=== PATIENT | male | born 1960 ===

== ENCOUNTER → 2021-05-21 | Outpatient (CLI) | payer BC ==
[~2021-05-21] MED LIST: ATOR20 PO; Adult Low Dose81 MG PO; CEPH500 PO; DIAZ5 PO; HYDACE5 PO; HYDMOR2 PO; LISI20 PO; NAPR220 PO; RXHYDMOR2 PO; RXLORA1 PO; VALS80
== END | disposition home or self-care (01) ==
LOC: LAB SHORT 14:30 → LAB 14:30
DX: E11.42 Type 2 diabetes mellitus with diabetic polyneuropathy (principal)
CPT/HCPCS: 82043

== ENCOUNTER → 2021-12-17 | Outpatient (CLI) | payer BC ==
[2021-12-17 14:53] LABS: BASOPHILS ABSOLUTE AUTO 0.06 K/mm3 (0.00-0.23); BASOPHILS PERCENT AUTO 1 % (0-2); EOSINOPHILS ABSOLUTE AUTO 0.32 K/mm3 (0.00-0.68); EOSINOPHILS PERCENT AUTO 3 % (0-6); Hematocrit 49.2 % (37.0-53.0); Hemoglobin 16.2 g/dL (13.5-17.5); IMMATURE GRAN ABSOLUTE AUTO 0.03 K/mm3 (0.00-0.10); IMMATURE GRAN PERCENT AUTO 0 % (0-1); LYMPHOCYTES ABSOLUTE AUTO 2.28 K/mm3 (0.84-5.20); LYMPHOCYTES PERCENT AUTO 24 % (21-46); MONOCYTES PERCENT AUTO 9 % (4-13); Mean Corpuscular HGB 28.2 pg (26.0-34.0); Mean Corpuscular HGB Conc 32.9 g/dL (31.5-36.5); Mean Corpuscular Volume 86 fL (80-100); Mean Platelet Volume 10.2 fL (9.1-12.4); NEUTROPHILS ABSOLUTE AUTO 6.06 K/mm3 (1.96-9.15); NEUTROPHILS PERCENT AUTO 63 % (41-73); Platelet Count 284 K/mm3 (150-400); RDW Coefficient Variation 12.9 % (11.7-14.2); RDW Standard Deviation 40.1 fL (35.1-46.3); Red Blood Cell Count 5.74 M/mm3 (4.30-5.90); White Blood Cell Count 9.65 K/mm3 (4.00-11.30)
== END | disposition home or self-care (01) ==
LOC: LAB SHORT 08:48
PROVIDERS: Hospitalist
DX: Z12.5 Encounter for screening for malignant neoplasm of prostate (principal); E29.1 Testicular hypofunction
CPT/HCPCS: 85025; G0103

== ENCOUNTER 2022-12-24 19:56 | Inpatient (IN) | payer BC ==
[~2022-12-24] VITALS: Ht 185.4 cm; Wt 111.0 kg
[2022-12-24] MEDS ORDERED: NEURONTIN300 MG PO (20:39)
[2022-12-24] MEDS ORDERED: DULOXETINE HCL60 M1 PO (20:39)
[2022-12-24] MEDS ORDERED: SEMGLEE (Y100 UNIT/2 SQ (20:39)
[2022-12-24] MEDS ORDERED: Methocarbamol750 MG PO (20:39)
[2022-12-24 20:59] LABS: BASOPHILS ABSOLUTE AUTO 0.17 K/mm3 (0.00-0.23); BASOPHILS PERCENT AUTO 1 % (0-2); EOSINOPHILS ABSOLUTE AUTO 0.01 K/mm3 (0.00-0.68); EOSINOPHILS PERCENT AUTO 0 % (0-6); Hematocrit 46.3 % (37.0-53.0); Hemoglobin 15.8 g/dL (13.5-17.5); IMMATURE GRAN ABSOLUTE AUTO 0.62 K/mm3 (0.00-0.10); IMMATURE GRAN PERCENT AUTO 3 % (0-1); LYMPHOCYTES ABSOLUTE AUTO 1.59 K/mm3 (0.84-5.20); LYMPHOCYTES PERCENT AUTO 6 % (21-46); MONOCYTES PERCENT AUTO 14 % (4-13); Mean Corpuscular HGB 27.8 pg (26.0-34.0); Mean Corpuscular HGB Conc 34.1 g/dL (31.5-36.5); Mean Corpuscular Volume 81 fL (80-100); Mean Platelet Volume 9.6 fL (9.1-12.4); NEUTROPHILS ABSOLUTE AUTO 19.33 K/mm3 (1.96-9.15); NEUTROPHILS PERCENT AUTO 77 % (41-73); Platelet Count 429 K/mm3 (150-400); RDW Coefficient Variation 13.1 % (11.7-14.2); RDW Standard Deviation 38.5 fL (35.1-46.3); Red Blood Cell Count 5.69 M/mm3 (4.30-5.90); White Blood Cell Count 25.12 K/mm3 (4.00-11.30)
[2022-12-24 21:22] LABS: Albumin, Blood 2.4 g/dL (3.4-5.0); Albumin/Globulin Ratio 0.4 (0.8-1.8); Bun/Creatinine Ratio 32.8 (12.0-20.0); Calcium, Blood 10.4 mg/dL (8.5-10.1); Creatinine, Blood 0.64 mg/dL (0.60-1.20); Globulin, Blood 5.5 g/dL (2.2-4.0); Potassium, Blood 4.1 mmol/L (3.5-5.5); Total Protein, Blood 7.9 g/dL (6.4-8.2)
[2022-12-25] VITALS (24 sets, daily range): BP systolic 120–169; BP diastolic 63–109
[2022-12-25 00:13] LABS: Base Excess Venous -13.7 mmol/L; Bicarbonate Venous 14.9 mmol/L (24.0-30.0); PCO2 Venous 28.4 mmHg (38-42)
[2022-12-25 00:16] LABS: pH Blood Venous 7.27 (7.34-7.37)
[2022-12-25 01:11] LABS: Source, Urine Clean Catch
[2022-12-25 01:13] LABS: Bilirubin, Urine Neg (Neg); Blood, Urine 4+ (Neg); Glucose Qualitative, Urine 4+ (Neg); Ketones, Urine 4+ (Neg); Leukocyte Esterase, Urine Neg (Neg); Nitrite, Urine Neg (Neg); Protein, Urine 2+ (Neg); Specific Gravity, Urine 1.015 (1.003-1.022); Urobilinogen, Urine NORM (Normal)
[2022-12-25 01:25] LABS: Appearance, Urine Clear (Clear); Color, Urine Yellow (P-Yellow)
[2022-12-25 01:27] LABS: Squamous Epithelial Cells Not Seen /hpf (Few); White Blood Cells, Urine 0-2 /hpf (0-5)
[2022-12-25 01:28] LABS: Bacteria Few /hpf; Granular Casts 0-2 /lpf (0)
[2022-12-25 03:37] LABS: Albumin, Blood 2.1 g/dL (3.4-5.0); Albumin/Globulin Ratio 0.4 (0.8-1.8); Bilirubin, Total 0.7 mg/dL (0.1-1.0); Bun/Creatinine Ratio 31.6 (12.0-20.0); Calcium, Blood 9.7 mg/dL (8.5-10.1); Creatinine, Blood 0.6 mg/dL (0.60-1.20); Globulin, Blood 5.2 g/dL (2.2-4.0); Potassium, Blood 3.5 mmol/L (3.5-5.5); Total Protein, Blood 7.3 g/dL (6.4-8.2)
--- NOTE | 2022-12-25 08:00 | NUR ---
ASSUMPTION OF CARE NOTE PATIENT ARRIVED TO UNIT ON INSULIN GTT. A&OX4 AND COOPERATIVE. TACHYPNIC AND HR IN 120S. COMPLAINS OF CHRONIC BACK PAIN FROM PREVIOUS SURGERIES. ABLE TO USE URINAL WITH SOME ASSISTANCE. PT STATES THEY WOULD LIKE TO REST THEY HAVE BEEN UP ALL NIGHT IN THE ED. HAS YET TO GET OUT OF BED, BUT IS INDEPENDENT WITH ADLS AT HOME.
[2022-12-25 09:36] LABS: BASOPHILS ABSOLUTE AUTO 0.02 K/mm3 (0.00-0.23); BASOPHILS PERCENT AUTO 0 % (0-2); EOSINOPHILS PERCENT AUTO 0 % (0-6); Hematocrit 26.2 % (37.0-53.0); Hemoglobin 8.7 g/dL (13.5-17.5); IMMATURE GRAN ABSOLUTE AUTO 0.12 K/mm3 (0.00-0.10); IMMATURE GRAN PERCENT AUTO 1 % (0-1); LYMPHOCYTES ABSOLUTE AUTO 0.77 K/mm3 (0.84-5.20); LYMPHOCYTES PERCENT AUTO 6 % (21-46); MONOCYTES ABSOLUTE AUTO 1.27 K/mm3 (0.16-1.47); MONOCYTES PERCENT AUTO 11 % (4-13); Mean Corpuscular HGB 28.2 pg (26.0-34.0); Mean Corpuscular HGB Conc 33.2 g/dL (31.5-36.5); Mean Corpuscular Volume 85 fL (80-100); Mean Platelet Volume 9.4 fL (9.1-12.4); NEUTROPHILS ABSOLUTE AUTO 9.91 K/mm3 (1.96-9.15); NEUTROPHILS PERCENT AUTO 82 % (41-73); Platelet Count 207 K/mm3 (150-400); RDW Coefficient Variation 13.2 % (11.7-14.2); RDW Standard Deviation 41.3 fL (35.1-46.3); Red Blood Cell Count 3.08 M/mm3 (4.30-5.90); White Blood Cell Count 12.09 K/mm3 (4.00-11.30)
[2022-12-25 10:09] LABS: Bun/Creatinine Ratio 37.6 (12.0-20.0); Creatinine, Blood 0.35 mg/dL (0.60-1.20); Potassium, Blood 2.1 mmol/L (3.5-5.5)
[2022-12-25 10:10] LABS: Calcium, Blood 6.1 mg/dL (8.5-10.1)
[2022-12-25 11:18] LABS: Magnesium, Blood 1.1 mg/dL (1.6-2.4); Phosphorus, Blood 1.1 mg/dL (2.5-4.9)
[2022-12-25 16:45] LABS: Blood Urea Nitrogen 15 mg/dL (8-24); Bun/Creatinine Ratio 31.3 (12.0-20.0); Bun/Creatinine Ratio 32.5 (12.0-20.0); CO2, Blood 16 mmol/L (21-32); Chloride, Blood 100 mmol/L (98-108); Creatinine, Blood 0.46 mg/dL (0.60-1.20); Creatinine, Blood 0.48 mg/dL (0.60-1.20); Glomerular Filtration Rate 117 (60-); Glucose, Blood 263 mg/dL (70-99); Phosphorus, Blood 2.2 mg/dL (2.5-4.9)
[2022-12-25 16:46] LABS: Calcium, Blood 9.5 mg/dL (8.5-10.1)
[2022-12-25 16:49] LABS: Anion Gap 12 mmol/L (6-16); Calcium, Blood 9.3 mg/dL (8.5-10.1); Potassium, Blood 4.3 mmol/L (3.5-5.5); Potassium, Blood 4.5 mmol/L (3.5-5.5)
[2022-12-25 16:50] LABS: Sodium, Blood 128 mmol/L (136-145)
--- NOTE | 2022-12-25 18:02 | NUR ---
SHIFT SUMMARY INSULIN GTT TURNED OFF AT 1250 PM. CBG'S REMAIN AROUND 250, MD AWARE. PT ORDERED TO BE ON LOW SLIDING SCALE ACHS. ROUTINE ORDER FOR LONG ACTING INSULIN TO BE ADRESSED IN AM PER MD. SEVERAL ELECTROLYTE REPLACEMENTS TODAY MAINLY FOR POTASSIUM, SODIUM, AND PHOSPATE. PT HAS BEEN TACHYPNIC, WITH SATS >92 ON RA. ALSO TACHYCARDIC. A&OX4 HAS BEEN ABLE TO SIT ON EDGE OF BED WITH ASSISTANCE BUT HAS NOT BEEN ABLE TO STAND.
[2022-12-25 21:09] LABS: Anion Gap 13 mmol/L (6-16); Blood Urea Nitrogen 15 mg/dL (8-24); CO2, Blood 15 mmol/L (21-32); Calcium, Blood 9.2 mg/dL (8.5-10.1); Chloride, Blood 97 mmol/L (98-108); Creatinine, Blood 0.43 mg/dL (0.60-1.20); Glomerular Filtration Rate 121 (60-); Glucose, Blood 313 mg/dL (70-99); Magnesium, Blood 1.8 mg/dL (1.6-2.4); Potassium, Blood 4.4 mmol/L (3.5-5.5); Sodium, Blood 125 mmol/L (136-145)
[2022-12-26] VITALS (9 sets, daily range): BP systolic 103–173; BP diastolic 59–146
--- NOTE | 2022-12-26 01:04 | NUR ---
PT IS ALERT AND ORIENTED X3 BUT CONTINUES TO PULL OFF HIS OXYGEN SENSOR, HAND HEEL SEAT FITTER AND HAS PULLED OUT AN IV. PT HAS BEEN EDUCATED AND REDIRECTED REPEATEDLY ABOUT THE NECESSITY OF THESE ITEMS. HE IS RESTLESS AND STATES HE CAN'T EXPLAIN WHY HE IS NON-COMPLIANT.
[2022-12-26 02:37] LABS: Hematocrit 44.6 % (37.0-53.0); Hemoglobin 15.3 g/dL (13.5-17.5); Mean Corpuscular HGB 28.4 pg (26.0-34.0); Mean Corpuscular HGB Conc 34.3 g/dL (31.5-36.5); Mean Corpuscular Volume 83 fL (80-100); Mean Platelet Volume 9.2 fL (9.1-12.4); Platelet Count 366 K/mm3 (150-400); RDW Coefficient Variation 13.4 % (11.7-14.2); RDW Standard Deviation 40.5 fL (35.1-46.3); Red Blood Cell Count 5.38 M/mm3 (4.30-5.90); White Blood Cell Count 25.16 K/mm3 (4.00-11.30)
[2022-12-26 02:56] LABS: Anion Gap 14 mmol/L (6-16); Blood Urea Nitrogen 14 mg/dL (8-24); Bun/Creatinine Ratio 35.6 (12.0-20.0); CO2, Blood 19 mmol/L (21-32); Calcium, Blood 9.6 mg/dL (8.5-10.1); Chloride, Blood 96 mmol/L (98-108); Creatinine, Blood 0.39 mg/dL (0.60-1.20); Glomerular Filtration Rate 125 (60-); Glucose, Blood 262 mg/dL (70-99); Magnesium, Blood 1.8 mg/dL (1.6-2.4); Phosphorus, Blood 2.5 mg/dL (2.5-4.9); Potassium, Blood 3.7 mmol/L (3.5-5.5); Sodium, Blood 129 mmol/L (136-145)
--- NOTE | 2022-12-26 06:13 | NUR ---
SHIFT SUMMERY PT HAS BEEN ALERT AND ORIENTED X4 BUT W/IMPULSIVE AND ERRATIC BEHAVIOR OVERNIGHT. HE HAS BEEN COMPULSIVELY TOUCHING HIS GENITALS. HE ALSO DISCONNECTED HIS IV AND PULLED HIS MONITOR DEVICES OFF MULTIPLE TIMES. HIS VS HAVE BEEN STABLE AND LABS ARE IMPROVING. HE VOIDS IN THE URINAL BUT HAS HAD 2 SMALL INCONTINENT STOOLS. HE HAS BEEN AFEBRILE.
[2022-12-26 08:47] LABS: Bun/Creatinine Ratio 29.7 (12.0-20.0); Calcium, Blood 9.8 mg/dL (8.5-10.1); Creatinine, Blood 0.47 mg/dL (0.60-1.20); Potassium, Blood 3.8 mmol/L (3.5-5.5)
--- NOTE | 2022-12-26 08:56 | NUR ---
ASSUMPTION OF CARE NOTE PT CURRENTLY AWAKE. APEARS UNSETTLED, FIDGETING. DOES NOT REPORT ANXIOUSNESS. REPORTS PAIN IS BETTER CONTROLLED WITH GABAPENTIN TID. LABS CONTINUE TO IMPROVE, BLOOD SUGARS REMAINING IN UPPER 200S. PT IS LOOKING FORWARD TO VISITING WITH FAMILY TODAY.
--- NOTE | 2022-12-26 11:14 | NUR ---
UPDATE REPORTS EUNICE'S BEHAVIOR IS VERY UNUSUAL COMPARED TO BASELINE. HE IS TYPICALLY NOT INAPPROPRIATE WITH TOUCHING HIMSELF OR STRIPPING OFF CLOTHING. HIS FIDGETING AND INCONTINENCE IS ALSO NEW. MOST OF THESE BEHAVIORS BEGAN HAPPENING ON SUNDAY 12/24 WHEN HE CAME INTO THE HOSPITAL. SHE CLAIMS THE PT HAD BEEN HAVING SOME INCONTINENCE DURING THE WEEK LEADING UP TO ADMISSION ALOND WITH MORE "NEEDINESS" THAN USUAL. SHE SAID PT WAS REPORTING THAT HE WAS TAKING HIS INSULIN BUT HE WAS NOT TAKING IT AT ALL OVER THE PAST SEVERAL DAYS. SHE ALSO MENTIONED OBSERVING SIGNIFICANT MUSCLE ATROPHY IN PT'S LEG. SHE IS VERY CONCERNED ABOUT HIS UNUSUAL BEHAVIOR. PT REMAINS ALERT AND ORTIENTED X4
--- NOTE | 2022-12-26 18:10 | NUR ---
SHIFT SUMMARY PT REMAINS A&OX4, WITH SOME FORGETFUL/INAPROPRIATE BEHAIVOR INTERMITTENTLY. WAS ABLE TO SIT AT EDGE OF BED FOR LUNCH TODAY BUT HAS STILL BEEN UNABLE TO STAND. RN FEELS PT WOULD BENEFIT FROM PHYSICAL THERAPY. HR AND RESP RATE REMAIN TACHY, BUT LABS ARE CONTINUING TO IMPROVE. SUGARS ARE ELEVATED IN HIGH 200S TO MID 300S. PER MD NOTE, TO INCREASE SLIDING SCALE INSULIN. DOWNGRADED TO MED STATUS NO TELE. TRANSPORTING PT TO MEDICAL FLOOR NOW
[2022-12-27] VITALS (14 sets, daily range): BP systolic 118–177; BP diastolic 72–105
--- NOTE | 2022-12-27 05:38 | NUR ---
PATIENT VITALS: R:36-40, T: 98.5, HR 130-136, BP 177/105, O2 95% ON ROOM AIR CBG 320 AND LUNGS: CRACKLES, NS KCL 2 100 mL/HR HOSPITALIST DR GILMAN ORDER: LASIX IV 40 MG X ONE; DC FLUIDS, AND PORTABLE CXR X ONE VIEW.
[2022-12-27 06:01] LABS: Hematocrit 44.3 % (37.0-53.0); Hemoglobin 15.3 g/dL (13.5-17.5); Mean Corpuscular HGB 28.1 pg (26.0-34.0); Mean Corpuscular HGB Conc 34.5 g/dL (31.5-36.5); Mean Corpuscular Volume 81 fL (80-100); Mean Platelet Volume 9.9 fL (9.1-12.4); Platelet Count 448 K/mm3 (150-400); RDW Coefficient Variation 13.6 % (11.7-14.2); RDW Standard Deviation 40.1 fL (35.1-46.3); Red Blood Cell Count 5.45 M/mm3 (4.30-5.90)
--- NOTE | 2022-12-27 06:17 | NUR ---
PATIENT BLADDER SCAN 1,[address] DESAI ORDERED TRIPELTT CATHETER URINE 1,500 mL OUT URINE SAMPLE SENT TO LAB
[2022-12-27 06:19] LABS: Albumin, Blood 1.7 g/dL (3.4-5.0); Anion Gap 16 mmol/L (6-16); Blood Urea Nitrogen 27 mg/dL (8-24); Bun/Creatinine Ratio 38.6 (12.0-20.0); CO2, Blood 13 mmol/L (21-32); Calcium, Blood 10.4 mg/dL (8.5-10.1); Chloride, Blood 99 mmol/L (98-108); Glomerular Filtration Rate 105 (60-); Glucose, Blood 359 mg/dL (70-99); Phosphorus, Blood 3.2 mg/dL (2.5-4.9); Sodium, Blood 128 mmol/L (136-145)
--- NOTE | 2022-12-27 06:28 | NUR ---
SHIFT SUMMARY PATIENT HAD INCREASE HR AND RESPIRATIONS, WITH URINE RETENTION (SEE NOTE FOR HOSPITALIST ORDERS). TRIPLETT PLACED PER ORDER. AXOX 2, CONFUSION, AND BEDREST. PLACED ON 2L O2 NC. PIV REMAINS INTACT. CBG 356 AND 320. NS DC'D PER ORDER. DENIES CHEST PAIN, SOB, AND N/V. SPOUSE REPORTED PATIENT CONFUSED BEFORE SHE LEFT AT SHIFT CHANGE. CALL LIGHT IN REACH. BED IN LOWEST POSITION. WILL CONTINUE TO MONITOR UNTIL DAY SHIFT NURSE ASSUMES CARE.
[2022-12-27 06:33] LABS: BAND PERCENT MAN 5 % (0-8); BASOPHILS PERCENT MAN 0 % (0-2); EOSINOPHILS PERCENT MAN 0 % (0-6); LYMPHOCYTES ABSOLUTE MAN 1.31 K/mm3 (0.84-5.20); LYMPHOCYTES PERCENT MAN 4 % (21-46); MONOCYTES ABSOLUTE MAN 2.62 K/mm3 (0.16-1.47); MONOCYTES PERCENT MAN 8 % (4-13); NEUTROPHILS ABSOLUTE MAN 28.86 K/mm3 (1.96-9.15); SEG NEUTROPHILS PERCENT MAN 83 % (41-73); TOTAL CELLS COUNTED 100
[2022-12-27 06:40] LABS: Source, Urine Foley catheter
[2022-12-27 06:58] LABS: Appearance, Urine Cloudy (Clear); Bilirubin, Urine Neg (Neg); Blood, Urine 5+ (Neg); Color, Urine Red (P-Yellow); Glucose Qualitative, Urine 4+ (Neg); Ketones, Urine 3+ (Neg); Leukocyte Esterase, Urine 1+ (Neg); Nitrite, Urine Neg (Neg); Protein, Urine 3+ (Neg); Specific Gravity, Urine 1.015 (1.003-1.022); Urobilinogen, Urine 1+ (Normal)
[2022-12-27 07:01] LABS: Bacteria Many /hpf; Red Blood Cells, Urine TNTC /hpf (0-2)
[2022-12-27 07:02] LABS: Squamous Epithelial Cells Not Seen /hpf (Few)
--- NOTE | 2022-12-27 09:59 | NUR ---
PT ARRIVED TO ROOM [id number] APROX 0930. SEE ASSESSMENT AND VS. FSBS CHECKED AT 0955, RESULT 375, DR DAMICO NOTIFIED, STATES HE WILL COME ASSESS PT. PT'S AT BEDSIDE. WILL CONTINUE TO MONITOR PT STATUS.
[2022-12-27 11:01] LABS: Bun/Creatinine Ratio 43.9 (12.0-20.0); Calcium, Blood 10.5 mg/dL (8.5-10.1); Creatinine, Blood 0.68 mg/dL (0.60-1.20); Potassium, Blood 3.5 mmol/L (3.5-5.5)
--- NOTE | 2022-12-27 11:36 | NUR ---
AT START OF SHIFT PT WAS TACHYPEIC AND TACHYCARDIC. TEMP WAS SLIGHTLY ELEVATED. PT WAS SLEEPING AND LETHARGIC WHEN AROUSED. IN ROOM AND VERBALIZED THAT PT WAS "DOING GOOD" WHEN SHE LEFT HIM LAST NIGHT. PINK COLORED URINE NOTED IN TRIPLETT CATHETER. BG WAS 369. DR DAMICO NOTIFIED AND ORDERS GIVEN. PT TRANSFERED TO PCU AND REPORT GIVEN TO RECIEVING NURSE.
--- NOTE | 2022-12-27 15:51 | NUR ---
PT CONTINUES TO BE LETHARGIC, OPENS EYES TO NAME BUT QUICKLY CLOSES THEM AND APPEARS TO FALL BACK TO SLEEP. HR NOTED TO HAVE REMAINED 120-130s SINUS TACH SINCE ARRIVAL TO PCU THIS AM. DR DAMICO NOTIFIED AND NEW ORDERS RECEIVED. FSBS HAVE SLOWLY BEEN DECREASING AND 2.1L URINE OUTPUT SINCE ARRIVAL TO PCU. REOCCURENCE OF DKA REMAINS A CONCERN, MONITORING FSBS Q 2 HRS W SLIDING SCALE COVERAGE AC/HS. WILL CONTINUE TO MONITOR AND UPDATE DR DAMICO OF PT STATUS/CONCERNS. PT'S AT BEDSIDE.
--- NOTE | 2022-12-27 17:40 | NUR ---
SHIFT SUMMARY DR DAMICO UPDATED ON PT CONDITION AT 1648, PT'S REPORTS PT IS HAVING LEG CRAMPS AND PAIN. EVENING FSBS 300. NEW ORDERS RECIEVED. PT HAS REMAINED LETHARGIC T/O THE SHIFT SINCE ARRIVAL TO PCU. WAKES ONLY BRIEFLY AND QUICKLY APPEARS TO FALL BACK TO SLEEP. PT NOT ALERT ENOUGH FOR PO INTAKE TODAY. TURN Q 2. 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 DR DAMICO NOTIFIED OF BACK PAIN. FSBS CHANGED TO Q 4 HRS FOR CLOSER MONITORING. CONTINUOUS TELEMETRY, PULSE OX AND BPs Q 1HR. PT UNABLE TO USE CALL LIGHT FOR NEEDS, FREQUENT ROUNDING, BED ALARM ON FOR SAFETY. WILL CONTINUE TO MONITOR AND GIVE REPORT TO NOC SHIFT RN.
[2022-12-27 18:57] LABS: Bun/Creatinine Ratio 39.2 (12.0-20.0); Calcium, Blood 10.4 mg/dL (8.5-10.1); Creatinine, Blood 0.64 mg/dL (0.60-1.20); Potassium, Blood 3.3 mmol/L (3.5-5.5)
[2022-12-28 04:09] LABS: Bun/Creatinine Ratio 41.4 (12.0-20.0); Creatinine, Blood 0.6 mg/dL (0.60-1.20); Potassium, Blood 3.3 mmol/L (3.5-5.5)
[2022-12-28 04:33] VITALS: BP 145/77
--- NOTE | 2022-12-28 06:45 | NUR ---
SHIFT SUMMARY PATIENT ALERT AND ORIENTED TO SELF AND FAMILY. LETHARGIC, RESPONDS TO VERBAL STIMULI AND OCCASIONALLY SAYS A FEW THINGS, FALLS ASLEEP QUICKLY AND UNABLE TO ANSWER QUESTIONS OR FOLLOW DIRECTIONS. POTASSIUM WAS 3.3 LAST NIGHT, REPLACED WITH 40 MEQ IV POTASSIUM PER DR BACK. PATIENT CONTINUES TO BE TACHYPNIC BUT IS NOW ON ROOM AIR. BLOOD PRESSURE STABLE, HEART RATE STILL SINUS TACH. Q4 HOUR BLOOD SUGAR CHECKS, 0400 BLOOD SUGAR 253, TREATED PER EMAR. WILL CONTINUE TO MONITOR. CALL LIGHT WITHIN REACH.
[2022-12-28 07:00] VITALS: BP 144/87
[2022-12-28 11:15] LABS: Base Excess Venous 1.3 mmol/L; Bicarbonate Venous 26.5 mmol/L (24.0-30.0); pH Blood Venous 7.53 (7.34-7.37)
[2022-12-28 11:29] VITALS: BP 154/90
[2022-12-28 15:33] VITALS: BP 131/83
--- NOTE | 2022-12-28 18:06 | NUR ---
SHIFT SUMMARY; ASSUMED CARE AT 0700. LETHARGIC BUT RESPONSIVE TO VOICE. MOVES ALL FOUR EXTREMTIES BUT DOES NOT FOLLOW INSTRUCTIONS. RR 40-50, DISCUSSED WITH DR. GUIDO. VBG AND CT COMPLETED. REPOSITIONS SELF ON BED AT TIMES, BUT ASSISTED WITH Q2 REPOSITIONS. PT ATTEMPTED TO WORK WITH PT. SCREAMS AND DOES NOT FOLLOW INSTRUCTIONS. AT BEDSIDE MOST OF SHIFT. 2L 02 VIA NC NEEDED. NPO DUE TO LETHRAGY, IV FLUIDS DC'D BY DR. GUIDO AFTER CT RESULTS. TRIPLETT IN PLACE DRAINING TO GRAVITY. WILL CONTINUE TO MONITOR AND TREAT UNTIL CHANGE OF SHIFT.
[2022-12-28 19:44] VITALS: BP 139/85
[2022-12-29] VITALS (7 sets, daily range): BP systolic 131–162; BP diastolic 85–108
[2022-12-29 03:58] LABS: Hematocrit 46.4 % (37.0-53.0); Hemoglobin 15.4 g/dL (13.5-17.5); Mean Corpuscular HGB 27.7 pg (26.0-34.0); Mean Corpuscular HGB Conc 33.2 g/dL (31.5-36.5); Mean Corpuscular Volume 84 fL (80-100); Mean Platelet Volume 9.9 fL (9.1-12.4); Platelet Count 422 K/mm3 (150-400); RDW Coefficient Variation 14.3 % (11.7-14.2); RDW Standard Deviation 43.8 fL (35.1-46.3); Red Blood Cell Count 5.55 M/mm3 (4.30-5.90); White Blood Cell Count 21.69 K/mm3 (4.00-11.30)
[2022-12-29 04:26] LABS: Bun/Creatinine Ratio 49.2 (12.0-20.0); Calcium, Blood 9.8 mg/dL (8.5-10.1); Creatinine, Blood 0.61 mg/dL (0.60-1.20); Potassium, Blood 3.4 mmol/L (3.5-5.5)
[2022-12-29 13:56] LABS: Vancomycin, Trough 19.9 ug/mL (5.0-10.0)
--- NOTE | 2022-12-29 18:06 | NUR ---
SHIFT SUMMARY; ASSUMED CARE AT 0700. APPEARS MORE ALERT COMPARED TO PREVIOUS SHIFT. A/A/OX2. ABLE TO ANSWER QUESTIONS AT TIMES. EVALUATED BY SPEECH, DIET ORDERED. MOVES ARMS AND LEGS ON GURNEY, DIFFICULTY FOLLOWING INSTRUCTIONS. 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 TWITCHES FEET AND FREQUENTLY BENDS RIGHT LEG. CONTINUES TO YELL AND SCREEM WHEN MOVED OR REPOSITIONED. MRI COMPLETED TODAY, UPDATED BY DR. GUIDO ON MRI RESULTS AND PENDING TRANSFER. VSS, MEDICATED FOR PAIN PER EMAR, TOLERATING WELL. 2L O2 VIA NC PRN WHEN ASLEEP. TRIPLETT IN PLACE DRAINING YELLOW CLEAR URINE. BECOMES MORE LETHARGIC IN AFTERNOON AND ANSWERING LESS QUESTIONS, APPEARS CONFUSED. WILL CONTINUE TO MONITOR AND TREAT UNTIL CHANGE OF SHIFT. AWAITING COBRA TRANSFER.
[2022-12-29 18:31] LABS: International Normalized Ratio 1.25
== END 2022-12-29 19:28 | disposition short-term general hospital (02) | DRG 637 ==
LOC: ER 19:56 → ERHOLD 19:57 → ICUE 12-25 08:11 → PCU 12-25 15:16 → ICUE 12-25 15:16 → PCU 12-25 15:16 → ICUE 12-25 19:32 → MEDS 12-26 18:25 → PCU 12-27 09:34
PROVIDERS: Emergency Medicine; Internal Medicine; Student in an Organized Health Care Education/Training Program; ADMIT Internal Medicine
PROC: 3E03329 Introduction of Other Anti-infective into Peripheral Vein, Percutaneous Approach (ICD-10-PCS; principal; 2022-12-27)
PROC: 0T9B70Z Drainage of Bladder with Drainage Device, Via Natural or Artificial Opening (ICD-10-PCS; 2022-12-27)
DX: E11.10 Type 2 diabetes mellitus with ketoacidosis without coma (principal); A41.01 Sepsis due to Methicillin susceptible Staphylococcus aureus; G92.8 Other toxic encephalopathy; J96.01 Acute respiratory failure with hypoxia; K68.12 Psoas muscle abscess; G06.1 Intraspinal abscess and granuloma; R65.20 Severe sepsis without septic shock; E87.1 Hypo-osmolality and hyponatremia; N39.0 Urinary tract infection, site not specified; E87.0 Hyperosmolality and hypernatremia; I10 Essential (primary) hypertension; G25.81 Restless legs syndrome; E83.52 Hypercalcemia; E86.0 Dehydration; E87.6 Hypokalemia; E83.42 Hypomagnesemia; E83.39 Other disorders of phosphorus metabolism; R33.9 Retention of urine, unspecified; E11.40 Type 2 diabetes mellitus with diabetic neuropathy, unspecified; R29.6 Repeated falls; Z91.148 Patient's other noncompliance with medication regimen for other reason; Z91.048 Other nonmedicinal substance allergy status; Z79.4 Long term (current) use of insulin; Z79.82 Long term (current) use of aspirin; Z79.899 Other long term (current) drug therapy; W18.39XA Other fall on same level, initial encounter; Y92.009 Unspecified place in unspecified non-institutional (private) residence as the place of occurrence of the external cause
CPT/HCPCS: 36415; 70450; 71045; 71260; 72100; 72158; 80048; 80053; 80069; 80202; 81001; 82140; 82330; 82803; 82947; 83036; 83605; 83735; 83880; 84100; 84443; 84484; 85025; 85027; 85610; 87040; 87077; 87086; 87147; 87186; 92610; 93005; 93010; 96372; 97110; 97162; 99285-25; A9270; A9579; C1751; G0378; J0696; J1650; J1815; J1940; J2060; J3010; J3370; J3475; J3480; J7030; J7040; J7050; J7060; Q9967

== ENCOUNTER → 2023-06-16 | Outpatient (CLI) | payer BC ==
[~2023-06-16] MED LIST changes: +ACET500 PO; +BACL10 PO; +DULOXETINE HCL60 M1 PO; +IBUP600 PO; +INSULANPEN SC; +LOSA25 PO; +Methocarbamol750 MG PO; +NEURONTIN300 MG PO; +OXYC10ER PO; +SEMGLEE (Y100 UNIT/2 SQ; +TAMS.4ER PO
[2023-06-16 13:54] LABS: BASOPHILS ABSOLUTE AUTO 0.04 K/mm3 (0.00-0.23); BASOPHILS PERCENT AUTO 1 % (0-2); EOSINOPHILS ABSOLUTE AUTO 0.37 K/mm3 (0.00-0.68); EOSINOPHILS PERCENT AUTO 5 % (0-6); Hematocrit 34.2 % (37.0-53.0); IMMATURE GRAN ABSOLUTE AUTO 0.02 K/mm3 (0.00-0.10); IMMATURE GRAN PERCENT AUTO 0 % (0-1); LYMPHOCYTES ABSOLUTE AUTO 2.56 K/mm3 (0.84-5.20); LYMPHOCYTES PERCENT AUTO 35 % (21-46); MONOCYTES ABSOLUTE AUTO 0.57 K/mm3 (0.16-1.47); MONOCYTES PERCENT AUTO 8 % (4-13); Mean Corpuscular HGB Conc 32.2 g/dL (31.5-36.5); Mean Corpuscular Volume 84 fL (80-100); NEUTROPHILS ABSOLUTE AUTO 3.79 K/mm3 (1.96-9.15); NEUTROPHILS PERCENT AUTO 52 % (41-73); Platelet Count 484 K/mm3 (150-400); RDW Coefficient Variation 14.5 % (11.7-14.2); RDW Standard Deviation 43.6 fL (35.1-46.3); Red Blood Cell Count 4.08 M/mm3 (4.30-5.90); White Blood Cell Count 7.35 K/mm3 (4.00-11.30)
[2023-06-16 14:20] LABS: C-REACTIVE PROTEIN, EXT RANGE 0.968 mg/dL (0.000-0.300)
[2023-06-16 14:22] LABS: Albumin, Blood 2.9 g/dL (3.4-5.0); Albumin/Globulin Ratio 0.5 (0.8-1.8); Bilirubin, Total 0.2 mg/dL (0.1-1.0); Bun/Creatinine Ratio 19.6 (12.0-20.0); Calcium, Blood 9.3 mg/dL (8.5-10.1); Creatinine, Blood 0.51 mg/dL (0.60-1.20); Globulin, Blood 6.4 g/dL (2.2-4.0); Potassium, Blood 3.6 mmol/L (3.5-5.5); Total Protein, Blood 9.3 g/dL (6.4-8.2)
== END ==
LOC: LAB SHORT 11:25 → LAB 11:25
DX: M46.26 Osteomyelitis of vertebra, lumbar region (principal); R78.81 Bacteremia; B95.61 Methicillin susceptible Staphylococcus aureus infection as the cause of diseases classified elsewhere
CPT/HCPCS: 80053; 85025; 85651; 86140

== ENCOUNTER → 2023-06-23 | Outpatient (CLI) | payer BC ==
[2023-06-23 13:12] LABS: BASOPHILS ABSOLUTE AUTO 0.06 K/mm3 (0.00-0.23); BASOPHILS PERCENT AUTO 1 % (0-2); EOSINOPHILS ABSOLUTE AUTO 0.28 K/mm3 (0.00-0.68); EOSINOPHILS PERCENT AUTO 4 % (0-6); IMMATURE GRAN ABSOLUTE AUTO 0.02 K/mm3 (0.00-0.10); IMMATURE GRAN PERCENT AUTO 0 % (0-1); LYMPHOCYTES PERCENT AUTO 30 % (21-46); MONOCYTES ABSOLUTE AUTO 0.65 K/mm3 (0.16-1.47); MONOCYTES PERCENT AUTO 9 % (4-13); Mean Corpuscular HGB 27.4 pg (26.0-34.0); Mean Corpuscular HGB Conc 32.5 g/dL (31.5-36.5); Mean Corpuscular Volume 84 fL (80-100); Mean Platelet Volume 9.1 fL (9.1-12.4); NEUTROPHILS ABSOLUTE AUTO 4.31 K/mm3 (1.96-9.15); NEUTROPHILS PERCENT AUTO 57 % (41-73); Platelet Count 454 K/mm3 (150-400); RDW Coefficient Variation 14.8 % (11.7-14.2); RDW Standard Deviation 45.1 fL (35.1-46.3); Red Blood Cell Count 4.75 M/mm3 (4.30-5.90); White Blood Cell Count 7.62 K/mm3 (4.00-11.30)
[2023-06-23 13:57] LABS: C-REACTIVE PROTEIN, EXT RANGE <0.290 mg/dL (0.000-0.300)
[2023-06-23 14:00] LABS: Alanine Aminotransfer (ALT/SGP 14 U/L (12-78); Albumin, Blood 3.3 g/dL (3.4-5.0); Albumin/Globulin Ratio 0.7 (0.8-1.8); Alk Phos 240 U/L (50-136); Anion Gap 4 mmol/L (6-16); Aspartate Aminotrans (AST/SGOT 11 U/L (12-37); Bilirubin, Total 0.2 mg/dL (0.1-1.0); Blood Urea Nitrogen 19 mg/dL (8-24); Bun/Creatinine Ratio 34.7 (12.0-20.0); CO2, Blood 25 mmol/L (21-32); Calcium, Blood 9.5 mg/dL (8.5-10.1); Chloride, Blood 108 mmol/L (98-108); Creatinine, Blood 0.55 mg/dL (0.60-1.20); Glomerular Filtration Rate 112 (60-); Glucose, Blood 179 mg/dL (70-99); Potassium, Blood 3.8 mmol/L (3.5-5.5); Sodium, Blood 137 mmol/L (136-145); Total Protein, Blood 8.3 g/dL (6.4-8.2)
== END | disposition home or self-care (01) ==
LOC: LAB 11:16 → LAB SHORT 11:16
DX: M46.26 Osteomyelitis of vertebra, lumbar region (principal); G89.4 Chronic pain syndrome; R26.89 Other abnormalities of gait and mobility
CPT/HCPCS: 80053; 85025; 85651; 86140

== ENCOUNTER → 2023-06-30 | Outpatient (CLI) | payer BC ==
[2023-06-30 17:53] LABS: BASOPHILS ABSOLUTE AUTO 0.05 K/mm3 (0.00-0.23); BASOPHILS PERCENT AUTO 1 % (0-2); EOSINOPHILS ABSOLUTE AUTO 0.15 K/mm3 (0.00-0.68); EOSINOPHILS PERCENT AUTO 3 % (0-6); Hematocrit 40.6 % (37.0-53.0); Hemoglobin 13.2 g/dL (13.5-17.5); IMMATURE GRAN ABSOLUTE AUTO 0.01 K/mm3 (0.00-0.10); IMMATURE GRAN PERCENT AUTO 0 % (0-1); LYMPHOCYTES PERCENT AUTO 34 % (21-46); MONOCYTES ABSOLUTE AUTO 0.52 K/mm3 (0.16-1.47); MONOCYTES PERCENT AUTO 9 % (4-13); Mean Corpuscular HGB 27.2 pg (26.0-34.0); Mean Corpuscular HGB Conc 32.5 g/dL (31.5-36.5); Mean Corpuscular Volume 84 fL (80-100); Mean Platelet Volume 9.3 fL (9.1-12.4); NEUTROPHILS ABSOLUTE AUTO 3.23 K/mm3 (1.96-9.15); NEUTROPHILS PERCENT AUTO 54 % (41-73); Platelet Count 334 K/mm3 (150-400); RDW Coefficient Variation 14.9 % (11.7-14.2); RDW Standard Deviation 45.4 fL (35.1-46.3); Red Blood Cell Count 4.85 M/mm3 (4.30-5.90); White Blood Cell Count 5.96 K/mm3 (4.00-11.30)
[2023-06-30 21:03] LABS: Alanine Aminotransfer (ALT/SGP 15 U/L (12-78); Albumin, Blood 3.5 g/dL (3.4-5.0); Albumin/Globulin Ratio 0.9 (0.8-1.8); Alk Phos 238 U/L (50-136); Anion Gap 5 mmol/L (6-16); Aspartate Aminotrans (AST/SGOT 13 U/L (12-37); Bilirubin, Total 0.2 mg/dL (0.1-1.0); Blood Urea Nitrogen 21 mg/dL (8-24); Bun/Creatinine Ratio 34.9 (12.0-20.0); C-REACTIVE PROTEIN, EXT RANGE <0.290 mg/dL (0.000-0.300); CO2, Blood 26 mmol/L (21-32); Calcium, Blood 9.1 mg/dL (8.5-10.1); Chloride, Blood 110 mmol/L (98-108); Globulin, Blood 4.1 g/dL (2.2-4.0); Glomerular Filtration Rate 109 (60-); Glucose, Blood 253 mg/dL (70-99); Potassium, Blood 3.7 mmol/L (3.5-5.5); Sodium, Blood 141 mmol/L (136-145); Total Protein, Blood 7.6 g/dL (6.4-8.2)
== END ==
LOC: LAB SHORT 16:31 → EDSTATUS 06-29 14:55 → LAB FUT 06-29 14:55
DX: M46.26 Osteomyelitis of vertebra, lumbar region (principal); B95.61 Methicillin susceptible Staphylococcus aureus infection as the cause of diseases classified elsewhere; R78.81 Bacteremia; E11.69 Type 2 diabetes mellitus with other specified complication; Z79.2 Long term (current) use of antibiotics
CPT/HCPCS: 80053; 85025; 85651; 86140

== ENCOUNTER → 2023-07-07 | Outpatient (CLI) | payer BC ==
[2023-07-07 14:35] LABS: BASOPHILS ABSOLUTE AUTO 0.03 K/mm3 (0.00-0.23); BASOPHILS PERCENT AUTO 1 % (0-2); EOSINOPHILS PERCENT AUTO 3 % (0-6); Hematocrit 43.1 % (37.0-53.0); Hemoglobin 13.9 g/dL (13.5-17.5); IMMATURE GRAN ABSOLUTE AUTO 0.01 K/mm3 (0.00-0.10); IMMATURE GRAN PERCENT AUTO 0 % (0-1); LYMPHOCYTES ABSOLUTE AUTO 2.28 K/mm3 (0.84-5.20); LYMPHOCYTES PERCENT AUTO 36 % (21-46); MONOCYTES ABSOLUTE AUTO 0.57 K/mm3 (0.16-1.47); MONOCYTES PERCENT AUTO 9 % (4-13); Mean Corpuscular HGB 27.4 pg (26.0-34.0); Mean Corpuscular HGB Conc 32.3 g/dL (31.5-36.5); Mean Corpuscular Volume 85 fL (80-100); Mean Platelet Volume 9.7 fL (9.1-12.4); NEUTROPHILS ABSOLUTE AUTO 3.24 K/mm3 (1.96-9.15); NEUTROPHILS PERCENT AUTO 51 % (41-73); Platelet Count 311 K/mm3 (150-400); RDW Coefficient Variation 15.1 % (11.7-14.2); RDW Standard Deviation 46.6 fL (35.1-46.3); Red Blood Cell Count 5.07 M/mm3 (4.30-5.90); White Blood Cell Count 6.33 K/mm3 (4.00-11.30)
[2023-07-07 14:36] LABS: C-REACTIVE PROTEIN, EXT RANGE <0.290 mg/dL (0.000-0.300)
[2023-07-07 14:56] LABS: Alanine Aminotransfer (ALT/SGP 32 U/L (12-78); Albumin, Blood 3.4 g/dL (3.4-5.0); Albumin/Globulin Ratio 0.8 (0.8-1.8); Alk Phos 244 U/L (50-136); Anion Gap 6 mmol/L (6-16); Aspartate Aminotrans (AST/SGOT 4 U/L (12-37); Bilirubin, Total 0.2 mg/dL (0.1-1.0); Blood Urea Nitrogen 21 mg/dL (8-24); CO2, Blood 25 mmol/L (21-32); Calcium, Blood 8.8 mg/dL (8.5-10.1); Chloride, Blood 108 mmol/L (98-108); Creatinine, Blood 0.49 mg/dL (0.60-1.20); Globulin, Blood 4.2 g/dL (2.2-4.0); Glomerular Filtration Rate 116 (60-); Glucose, Blood 209 mg/dL (70-99); Sodium, Blood 139 mmol/L (136-145); Total Protein, Blood 7.6 g/dL (6.4-8.2)
== END | disposition home or self-care (01) ==
LOC: LAB 11:13 → LAB SHORT 11:13
PROVIDERS: Registered Nurse Oncology
DX: E11.69 Type 2 diabetes mellitus with other specified complication (principal); M46.26 Osteomyelitis of vertebra, lumbar region; R78.81 Bacteremia
CPT/HCPCS: 80053; 85025; 85651; 86140